=== PATIENT | male | born 1975 | race Caucasian/White ===

== ENCOUNTER → 2019-10-31 | Outpatient (CLI) | payer BC ==
--- NOTE | 2019-11-01 08:34 | CT ---
EXAMINATION TYPE: CT chest wo con DATE OF EXAM: 10/31/2019 COMPARISON: CT chest 02/03/2015 HISTORY: Follow up to R/O thoracic aneurysm CT DLP: 353 mGycm. Automated Exposure Control for Dose Reduction was Utilized. TECHNIQUE: CT scan of the thorax is performed without IV contrast. FINDINGS: Lack of contrast could compromise sensitivity. LUNGS: The lungs are grossly clear, there is no concerning parenchymal mass or nodule identified. T here is no pleural effusion or pneumothorax seen. The tracheobronchial tree is patent. MEDIASTINUM: Lack of IV contrast is noted to limit evaluation for mediastinal and especially hilar ad enopathy. There are no definitive greater than 1 cm hilar or mediastinal lymph nodes. No cardiomega ly or pericardial effusion is seen. OTHER: The ascending aorta measures approximately 4.3 cm. Proximal descending aorta measures approxim ately 3 cm. The level of the aortic hiatus the aorta measures 3 cm. IMPRESSION: Thoracic aortic aneurysm. Noncontrast exam.
== END | disposition home or self-care (01) ==
LOC: RADCTMAIN 16:53
PROVIDERS: ATTEND Family Medicine
DX: I71.2 Thoracic aortic aneurysm, without rupture (principal)
CPT/HCPCS: 71250

== ENCOUNTER → 2021-01-11 | Outpatient (CLI) | payer BC ==
--- NOTE | 2021-01-11 09:58 | CT ---
EXAMINATION TYPE: CT angio chest DATE OF EXAM: 01/11/2021 COMPARISON: Chest CT October 31, 2019 HISTORY: Thoracic aortic aneurysm, without rupture CT DLP: 946 mGycm. Automated Exposure Control for Dose Reduction was Utilized. CONTRAST: CTA scan of the thorax is performed with IV Contrast, patient injected with 100 mL of Isovue 370, ane urysm protocol. . 3D reconstructed images are created on an independent workstation and reviewed. FINDINGS: LUNGS: The lungs remain grossly clear, there is no concerning parenchymal mass or nodule identified. There is no pleural effusion or pneumothorax seen. The tracheobronchial tree is patent. MEDIASTINUM: Ascending aortic aneurysm up to 4.2 cm axial image 24 is stable. There is bovine type ar ch which is normal variant redemonstrated. There are no new greater than 1 cm hilar or mediastinal l ymph nodes. No cardiomegaly or pericardial effusion is seen. OTHER: Small degree of flame-shaped gynecomastia bilaterally is redemonstrated. IMPRESSION: Stable 4.2 cm ascending aortic aneurysm.
== END | disposition home or self-care (01) ==
LOC: RADCTMAIN 08:11
PROVIDERS: ATTEND Family Medicine
DX: I71.2 Thoracic aortic aneurysm, without rupture (principal)
CPT/HCPCS: 71275; Q9967

== ENCOUNTER → 2021-01-27 | Outpatient (CLI) | payer BC ==
--- NOTE | 2021-01-27 10:01 | ECHOF ---
Referral Reason:I25.3 Aneurysm of heart MEASUREMENTS -------- HEIGHT: 177.8 cm WEIGHT: 97.5 kg BP: RVIDd: 2.9 cm (< 3.3) IVSd: 1.8 cm (0.6 - 1.1) LVIDd: 3.4 cm (3.9 - 5.3) LVPWd: 1.5 cm (0.6 - 1.1) IVSs: 2.5 cm LVIDs: 1.5 cm LVPWs: 1.8 cm LAESV Index (A-L): 19.73 ml/m MV E Anish: 0.96 m/s MV DecT: 149 ms MV A Anish: 0.84 m/s MV E/A Ratio: 1.14 RAP: 5.00 mmHg RVSP: 10.74 mmHg FINDINGS -------- This was a technically good study. The left ventricular size is normal. There is moderate concentric left ventricular hypertrophy. O verall left ventricular systolic function is normal with, an EF between 55 - 60 %. The diastolic fi lling pattern is normal for the age of the patient 10.17. The right ventricle is normal in size. The left atrial size is normal. Normal LA size by volume 22+/-6 ml/m2. The right atrial size is normal. The aortic valve is trileaflet and appears structurally normal. The mitral valve is normal. There is trace mitral regurgitation. The tricuspid valve appears structurally normal. Trace tricuspid regurgitation present. Right daniel tricular systolic pressure is normal at < 35 mmHg. There is no pulmonic regurgitation present. The aortic root size is normal. Normal inferior vena cava with normal inspiratory collapse consistent with estimated right atrial pre ssure of 5 mmHg. There is no pericardial effusion. CONCLUSIONS -------- 1. The left ventricular size is normal. 2. There is moderate concentric left ventricular hypertrophy. 3. Overall left ventricular systolic function is normal with, an EF between 55 - 60 %. 4. The diastolic filling pattern is normal for the age of the patient 10.17 5. There is trace mitral regurgitation. 6. Trace tricuspid regurgitation present. 7. There is no pericardial effusion. DIGITAL INTERN: Maricel Salcedo RDCS
== END | disposition home or self-care (01) ==
LOC: RADECHMAIN 08:25
PROVIDERS: ATTEND Surgery
DX: I25.3 Aneurysm of heart (principal); I34.0 Nonrheumatic mitral (valve) insufficiency; I07.1 Rheumatic tricuspid insufficiency
CPT/HCPCS: 93306

== ENCOUNTER → 2022-02-07 | Outpatient (CLI) | payer BC ==
--- NOTE | 2022-02-07 11:49 | CT ---
EXAMINATION TYPE: CT angio chest CT DLP: 836.9 mGycm, Automated exposure control for dose reduction was used. DATE OF EXAM: 02/07/2022 11:26 AM COMPARISON: 01/11/2021. 02/03/2015. CLINICAL INDICATION:Male, 46 years old with history of I71.20 THORACIC AORTIC ANEURYSM, WITHOUT RUPTU RE,; THORACIC ANEURYSM TECHNIQUE/CONTRAST: CTA scan of the thorax is performed with IV Contrast, patient injected with 100 mL of Isovue 370, pul monary embolism protocol. MIP images are created and reviewed. 3-D reconstructions are created on separate workstation. FINDINGS: Lungs/Pleura: No evidence of focal consolidation, pleural effusion or pneumothorax. Mild centrilobula r emphysema changes suggested. Right minor fissure intrafissural lymph node. Airway: Large airways are patent. Heart: Heart is within normal limits for size. Vasculature: Ascending thoracic aorta measures up to 4.0 cm measuring sagittal imaging orthogonal to the past. This measured 3.8 cm in 2015. The descending thoracic aorta is within normal limits for thi ckness. Minimal scattered atherosclerosis noted. Visualized portions of the upper abdominal aorta are within normal limits and patent. Mediastinum: No gross evidence of adenopathy. Musculoskeletal: No acute osseous abnormalities Soft Tissues: Unremarkable. Lower neck: No significant findings. Upper Abdomen: Diffuse low-attenuation to the liver parenchyma.. IMPRESSION: 1. Mild ectasia of the ascending thoracic aorta up to 4.0 cm with smooth tapering. This is mildly in creased from 2015 where it measured 3.8 cm. 2. No evidence for dissection. 3. Hepatic steatosis.
== END | disposition home or self-care (01) ==
LOC: RADCTMAIN 10:26
PROVIDERS: ATTEND Surgery
DX: K76.0 Fatty (change of) liver, not elsewhere classified (principal); I71.20 Thoracic aortic aneurysm, without rupture, unspecified
CPT/HCPCS: 71275; Q9967

== ENCOUNTER → 2023-03-09 | Outpatient (CLI) | payer BC ==
--- NOTE | 2023-03-09 10:37 | CT ---
CTA CHEST EXAMINATION TYPE: CT angio chest DATE OF EXAM: 03/09/2023 INDICATION: Aneurysm CT DLP: 776.00 mGycm, Automated exposure control for dose reduction was used. CONTRAST: Patient injected with 100 ml mL of Isovue 370. COMPARISON: 02-28 TECHNIQUE: CT of the chest is performed on a spiral scan at 2 mm thick sections. Study is performed with intravenous contrast timed for evaluation for thoracic aneurysm. This will limit additional por tions of the evaluation. 3-D MIP images reconstructed by the technologist are reviewed on the comput er in the coronal and sagittal planes. FINDINGS: Portion of the thyroid visualized is normal. No mediastinal or hilar adenopathy enlarged by CT criteria is evident. The ascending aorta diameter at the level of the main pulmonary artery is 4.0 cm. The main pulmonary artery diameter at the bifurcation is 2.6 cm. Lung windows are clear. Limited CT sections were through the upper abdomen. There is moderate fatty infiltration of liver. IMPRESSION: 1. 4.0 cm ascending thoracic aortic aneurysm .
== END | disposition home or self-care (01) ==
LOC: RADCTMAIN 08:57
PROVIDERS: ATTEND Surgery
DX: I71.21 Aneurysm of the ascending aorta, without rupture (principal)
CPT/HCPCS: 71275; Q9967

== ENCOUNTER 2023-05-10 09:50 | Day surgery (SDC) | payer BC ==
[2023-05-08 14:59] VITALS: BMI 32.5
[~2023-05-10 09:50] MED LIST: LIDOCAINE 1% (10MG/ML) FOR IV START INTRADERMA PRN
[2023-05-10] MEDS: LACTATED RINGERS 1,000 ML IV SCH (10:49)
[2023-05-10 11:16] VITALS: TEMP 97.9
[2023-05-10] MEDS ORDERED: PROPOFOL 10 MG/ML 20 ML VIAL IV ONE (11:57)
--- NOTE | 2023-05-10 12:15 | P.PCN ---
Date of Procedure: 05/10/23 Procedure(s) Performed: BRIEF HISTORY: Patient is a 47-year-old pleasant White male scheduled for an elective colonoscopy as a part of Evaluation of intermittent rectal bleeding for the last few weeks dura tion PROCEDURE PERFORMED: ColonoscopyWith snare polypectomy PREOPERATIVE DIAGNOSIS: Intermittent rectal bleeding IV sedation per Anesthesia. PROCEDURE: After informed consent was obtained, the patient, was brought into the endoscopy unit. IV sedation was administered by Anesthesia under continuous monitoring. Digital rectal examination was normal. Initially the Olympus CF-160 flexible video colonoscope was then inserted in the rectum, gradually advanced into the cecum without any difficulty. Careful examination was performed as the scope was gradually being withdrawn. Ileocecal valve and the appendiceal orifice were visualized and appeared normal. Prep was excellent. Mucosa of the cecum, ascending colon,Appeared normal. The hepatic flexure there was a 5 mm 2 and 1 cm polyp removed by snare polypectomy. Rest of the transverse colon, descending colon, appeared normal. In the sigmoid at 28 cm from the anal verge there was a 2.5 cm pedunculated polyp that was removed by snare polypectomy. Rest of thesigmoid colon, and rectum appeared normal. Retroflexion was performed in the rectum and no lesions were seen. The patient tolerated the procedure well. IMPRESSION: 5 mm 2 and 1 cm hepatic metastases a polyp status post polypectomy 2.5 cm pedunculated polyp at 28 cm from the status post polypectomy RECOMMENDATIONS: Findings of this examination were discussed with the patient As well as his family. He was advised to follow with the biopsy result. If the biopsy results adenoma he can have a repeat colonoscopy in 3 years.
[2023-05-10] MEDS: IV FLUID CONTINUATION 600 ML IV ONE (12:21)
[2023-05-10 12:35] VITALS: BP 137/58; PULSE 71; RESP 16
== END 2023-05-10 12:57 | disposition home or self-care (01) ==
LOC: ORWHC2ENDO 09:50
PROVIDERS: ATTEND Internal Medicine Gastroenterology
DX: K63.5 Polyp of colon (principal); K62.5 Hemorrhage of anus and rectum; F41.9 Anxiety disorder, unspecified; Z79.899 Other long term (current) drug therapy; Z90.49 Acquired absence of other specified parts of digestive tract; Z98.890 Other specified postprocedural states
CPT/HCPCS: 45385; J2704; 88305

== ENCOUNTER 2023-08-25 09:42 | Day surgery (SDC) | payer BC ==
[2023-08-24 09:41] VITALS: BMI 32.5
[2023-08-25] MEDS: LACTATED RINGERS 1,000 ML IV SCH (10:22)
[2023-08-25 10:25] VITALS: TEMP 97
[2023-08-25] MEDS: IV FLUID CONTINUATION 1,000 ML IV ONE (10:26)
[2023-08-25] MEDS ORDERED: PROPOFOL 10 MG/ML 20 ML VIAL IV ONE (10:56)
--- NOTE | 2023-08-25 11:14 | P.PCN ---
Date of Procedure: 08/25/23 Procedure(s) Performed: BRIEF HISTORY: Patient is a 48 year-old pleasant white male scheduled for an elective colonoscopy as a part of follow-up of malignant sigmoid colon polyp diagnosed in on a routine screening colonoscopy in May 2023.polyp was completely resected endoscopically. PROCEDURE PERFORMED: Colonoscopy. PREOPERATIVE DIAGNOSIS: Follow-up malignant sigmoid colon polyp diagnosed May 2023 IV sedation per Anesthesia. PROCEDURE: After informed consent was obtained, the patient, was brought into the endoscopy unit. IV sedation was administered by Anesthesia under continuous monitoring. Digital rectal examination was normal. Initially the Olympus CF-160 flexible video colonoscope was then inserted in the rectum, gradually advanced into the cecum without any difficulty. Careful examination was performed as the scope was gradually being withdrawn. Ileocecal valve and the appendiceal orifice were visualized and appeared normal. Prep was excellent. Mucosa of the cecum, ascending colon, transverse colon, descending colon, sigmoid colon, and rectum appeared normal. at the site of previous polypectomy in the sigmoid colon at 28 cm from the anal verge there was some scar tissue identified but no residual polyp noted.Retroflexion was performed in the rectum and no lesions were seen. The patient tolerated the procedure well. IMPRESSION: Normal-appearing colon from rectum to cecum with no evidence of colorectal neoplasia . RECOMMENDATIONS: Findings of this examination were discussed with the patient as well as his family. He was advised to have a repeat surveillance colonoscopy in one year.
[2023-08-25 11:23] VITALS: RESP 16
[2023-08-25 11:34] VITALS: BP 152/79; PULSE 74
== END 2023-08-25 11:50 | disposition home or self-care (01) ==
LOC: ORWHC2ENDO 09:42
PROVIDERS: ATTEND Internal Medicine Gastroenterology
DX: Z12.11 Encounter for screening for malignant neoplasm of colon (principal); I10 Essential (primary) hypertension; F41.9 Anxiety disorder, unspecified; Z79.899 Other long term (current) drug therapy; Z85.038 Personal history of other malignant neoplasm of large intestine
CPT/HCPCS: 45378; J2704